=== PATIENT | male | born 1990 | race Caucasian/White ===

== ENCOUNTER 2024-05-18 10:36 | Outpatient (OUT) | payer OTHER, SELFPAY ==
--- NOTE | 2024-05-18 | XR_ITS ---
The [address] [address] Patient Name: JOSE LAWRENCE MRN: [id number] date: 1990 Sex: M Assigned Patient Location: Current Patient Location: Accession/Order Number: [id number] Exam Date: 05/18/2024 14:02 Report Date: 05/18/2024 14:05 At the request of: BECKA FOREMAN MD Procedure: XR knee LT 2V LEFT KNEE - 2 views COMPARISON: None currently available CLINICAL DATA: Left knee pain since injury skiing yesterday. AP and lateral views were obtained. There is a vertically oriented lateral tibial plateau fracture with intra-articular extension. There is no significant displacement or step-off at the articular margin. No other fractures or dislocation are noted. There is a large knee effusion. XR/XR knee LT 2V IMPRESSION: LATERAL TIBIAL PLATEAU FRACTURE. THERE ARE NO AVAILABLE COMPARISONS FOR CORRELATION. Impression dictated by: Ev Ann M.D.05/18/2024 2:05 PM Dictation Location: [place] [address] Electronically authenticated by: [id number] Y Date: 05/18/2024 14:05
== END 2024-05-18 10:37 | disposition home or self-care (01) ==
LOC: EC 10:43
PROVIDERS: Visit Provider Orthopaedic Surgery
DX: S82.122A Displaced fracture of lateral condyle of left tibia, initial encounter for closed fracture (principal)
CPT/HCPCS: 73560

== ENCOUNTER 2024-05-25 09:06 | Outpatient (OUT) | payer OTHER, SELFPAY ==
--- NOTE | 2024-05-25 | XR_ITS ---
The [place] [id number] Patient Name: JOSE LAWRENCE MRN: [id number] date: 1990 Sex: M Assigned Patient Location: Current Patient Location: Accession/Order Number: [id number] Exam Date: 05/25/2024 10:52 Report Date: 05/25/2024 10:53 At the request of: BECKA FOREMAN MD Procedure: XR knee LT 2V LEFT KNEE - 2 views CLINICAL HISTORY: Follow-up tibial plateau fracture COMPARISON: Left knee 05/18/2024 FINDINGS: Lateral tibial plateau fracture grossly unchanged in alignment and healing compared to the prior study. There is approximately 2 mm of depression of the fracture. Moderate joint effusion. XR/XR knee LT 2V IMPRESSION: NO SIGNIFICANT CHANGE IN FRACTURE FINDINGS. Impression dictated by: Evan Lopez Jr., D.O.05/25/2024 10:53 AM Dictation Location: [place] [address] Electronically authenticated by: [id number] Y Date: 05/25/2024 10:53
--- OUTSIDE RECORDS SUMMARY | 2024-05-25 09:22 | XMS_ITS | CCD ---
Author Organization [facility]iniSyco Care Team Providers Care Dewaterer Operator Name Role Phone Erika OLIVEIRA Attending Unavailable Erika OLIVEIRA Admitting Unavailable Janis Cruz MD Primary Care Provider KIM MENDOZA Attending Unavailable KIM MENDOZA Attending Unavailable Medications Current Medications Medication Drug Class(es) Dates Sig (Normalized) Sig (Original) 24 hr levETIRAcetam 1000 mg extended release oral tablet (3 sources) Start: 07-17-2023 take 2 tablets by mouth every twenty-four hours in the morning levETIRAcetam XR 1000 MG tablet sustained-release 24 hour Indications: Seizure (CMS/HCC) Take 2,000 mg by mouth in the morning and 2,000 mg before bedtime. 180 tablet 1 07/17/2023 Active Problems Problem Classification Problem Date Documented Date Episodic/Chronic Epilepsy; convulsions (6 sources) Generalized idiopathic epilepsy and epileptic syndromes, intractable, without status epilepticus; Translations: [Generalized nonconvulsive epilepsy, with intractable epilepsy] Onset: 07-15-2023 07-15-2023 Chronic Epilepsy; convulsions (5 sources) Seizure; Translations: [Unspecified convulsions] Onset: 07-15-2023 07-15-2023 Episodic Results Test Name Value Interpretation Reference Range Facil ity In office Testingon 09-06-19 23 In office Testing [id number]. [id number]# 1.00CD:127 Normal [facility] In office Testing [id number]. [id number]# 1.00CD:127 [facility] Progress Note-Nurseon 2022 Progress Note-Nurse [id number]. [id number]# 1.00CD:127 [facility] Consenton 01-11-2022 Consent [id number]. [id number]# 1.00CD:127 [facility] Registrationon 01-11-2022 Registration [id number]. [id number]# 1.00CD:127 [facility] Vital Signs Date Time Vital Sign Value Performing Clinician Zeina sebastian 02-26-2024 15:09-0500 Body height 185.4 cm Kim Faulknerr MACHINE DEICER ELEMENT WINDER Work Phone: [facility] 02-26-2024 15:09-0500 Body mass index (BMI) [Ratio] 26.91 kg/m2 Kim Elizaldemor MACHINE DEICER ELEMENT WINDER Work Phone: [facility] 02-26-2024 15:09-0500 Body weight 92.53 kg Kim Elizaldemor MACHINE DEICER ELEMENT WINDER Work Phone: [facility] 02-26-2024 15:09-0500 Diastolic blood pressure 81 mm[Hg] Kim Fidemor MACHINE DEICER ELEMENT WINDER Work Phone: [facility] 02-26-2024 15:09-0500 Heart rate 59 /min Kim Fidemor MACHINE DEICER ELEMENT WINDER Work Phone: [facility] 02-26-2024 15:09-0500 Systolic blood pressure 123 mm[Hg] Kim Fidemor MACHINE DEICER ELEMENT WINDER Work Phone: [facility] Healthcare Encounters Encounter Date Encounter Type Care Provider Facility Start: 02-26-2024 End: 02-26-2024 Office outpatient visit 15 minutes Kim Mendoza MACHINE DEICER ELEMENT WINDER Work Phone: [facility] [address] Comment on above: Seizure (CMS/HCC) (P rimary Dx) Start: 02-26-2024 End: 02-26-2024 ambulatory KIM MENDOZA Not Available Start: 02-26-2024 End: 02-26-2024 Bamboo flowsheet Kim Mendoza MACHINE DEICER ELEMENT WINDER [facility] Start: 02-26-2024 End: 02-26-2024 Bamboo flowsheet Kim Mendoza NP Work Phone: [facility] [place] [address] Start: 07-17-2023 End: 07-17-2023 ambulatory KIM MENDOZA Not Available Start: 01-11-2022 End: 01-12-2022 ambulatory Erika OLIVEIRA Facility:[facility] Plan of Treatment Date Care Activity Detail Author Start: 02-23-2025 End: 02-23-2025 Patient encounter procedure 02/23/2025 3:00 PM EST Office Visit [facility] [place] [address] [place] [address] Piper Martinez DO [address] [place] [address] [facility] Start: 02-26-2024 End: 02-26-2024 Patient encounter procedure 02/26/2024 3:00 PM EST Office Visit [facility] [place] [address] [place] [address] Kim Mendoza NP [address] [place] [place] [facility] Comment on above: Arrived Start: 11-10-2023 Influenza vaccination Influenz a Vaccine (#1) [facility] Immunizations Immunization Date Immunization Notes Care Provider Fa cili 02-11-2016 influenza virus vacc ine, unspecified formulation Kim Mendoza NP Work Phone: [facility] Payers Date Payer Category Payer Private Health Insurance [facility] [id number] 2023 Private Health Insurance [id number] 2021 Self-pay 1990 Unknown [id number] 1990 Unknown [id number] 1990 Unknown [id number] Social History Date Type Detail Facility [facility]: [facility] Start: 07-15-2023 Tobacco use and exposure Smokeless t obacco non-user [facility] Start: 07-17-2023 Alcoholic beverage intake Ex-drinker (finding) [facility] Start: 07-17-2023 End: 02-26-2024 History of Social function [facility] Start: 07-17-2023 End: 02-26-2024 Tobacco use panel [facility] Start: 1990 Sex assigned at Male [facility] Start: 02-24-2024 Gender identity Identifies as male gender (finding) [facility] Start: 02-24-2024 Sexual orientation Heterosexual (fin ding) [facility] Start: 02-26-2024 Alcoholic beverage intake Curr ent drinker of alcohol (finding) [facility] Evaluation note Note Date & Type Note Facility Evaluation note Diagnosis Seizure (CMS/HCC)- Primary Other convulsions documented in this encounter [facility] Summary Purpose Family History No Family History Records FoundNo Family History Records Found Advance Directives No Advanced Directives Records FoundNo Advanced Directives Records Found Additional Source Comments (unrecognized sect ion and content) No Status Records FoundNo Status Records Found INFORMATION SOURCE (unrecogn ized section and content) DATE CREATED AUTHOR 09/06/2022 Javi Turner [facility] DATE CREATED AUTHOR AUTHOR'S ORGANIZ ATION 03/01/2024 [facility] dical Specialists EPIC Care Teams (unrecognized sec tion and content) Dewaterer Operator Relationship Specialty Start Date End Date Janis Cruz MD [address] [facility] [address] PCP - General Family Medicine 07/17/23 Dewaterer Operator Relationship Specialty Start Date End Date Janis Cruz MD [address] [place] [address] PCP - General Family Medicine 07/17/23 FOR RECORDS PERTAINING TO PATIENTS WHO ARE OR HAVE BEEN ENROLLED IN A CHEMICAL DEPENDENCY/SUBSTANCEABUSE PROGRAM, SOME INFORMATION MAY BE OMITTED. This clinical summary was aggregated from multiple sources. Caution should be exercised in using it in the provision of clinical care. This summary normalizes information from multiple sources, and as a consequence, information in this document may materially change the coding, format and clinical context of patient data. In addition, data may be omitted in some cases. CLINICAL DECISIONS SHOULD BE BASED ON THE PRIMARY CLINICAL RECORDS. [employer] provides no warranty or guarantee of the accuracy or completeness of information in this document.
== END 2024-05-25 09:07 | disposition home or self-care (01) ==
LOC: EC 09:07
PROVIDERS: Visit Provider Orthopaedic Surgery
DX: S82.122D Displaced fracture of lateral condyle of left tibia, subsequent encounter for closed fracture with routine healing (principal)
CPT/HCPCS: 73560

== ENCOUNTER 2024-06-01 08:49 | Outpatient (OUT) | payer OTHER, SELFPAY ==
--- NOTE | 2024-06-01 08:50 | XR_ITS ---
The [place] [address] Patient Name: JOSE LAWRENCE MRN: [id number] date: 1990 Sex: M Assigned Patient Location: Current Patient Location: Accession/Order Number: [id number] Exam Date: 06/01/2024 14:00 Report Date: 06/01/2024 14:03 At the request of: BECKA FOREMAN MD Procedure: XR knee LT 2V LEFT KNEE - 2 views CLINICAL HISTORY: Closed fracture of lateral portion of left tibial plateau COMPARISON: Left knee 05/25/2024 FINDINGS: Small knee joint effusion. Lateral tibial plateau fracture grossly unchanged alignment with fracture line less conspicuous suggestive of healing response. XR/XR knee LT 2V IMPRESSION: HEALING LATERAL TIBIAL PLATEAU FRACTURE. Impression dictated by: Evan Lopez Jr., D.OCasey06/01/2024 2:03 PM Dictation Location: [place] [address] Electronically authenticated by: [id number] Y Date: 06/01/2024 14:03
--- OUTSIDE RECORDS SUMMARY | 2024-06-01 09:10 | XMS_ITS | CCD ---
Author Organization [facility] CliniSyal Care Team Providers Care Surface Water Manager Name Role Phone Erika OLIVEIRA Attending Unavailable rEika OLIVEIRA Admitting Unavailable Janis Cruz MD Primary Care Provider [phone] KIM MENDOZA Attending Unavailable KIM MENDOZA Attending [...] Testingon 09-06-19 23 In office Testing [id number]. [id number]# 1.00CD:[address] [facility] In office Testing [id number]. [id number]# 1.00CD:127 [facility] Progress Note-Nurseon 2022 Progress Note-Nurse [id number]. [id number]# 1.00CD:127 [facility] Consenton 01-11-2022 Consent [id number]. [id number]# 1.00CD:127 [facility] Registrationon 01-11-2022 Registration [id number]. [id number]# 1.00CD:127 [facility] Vital Signs Date Time Vital Sign Value Performing Clinician Zeina sebastian 02-26-2024 15:09-0500 Body height 185.4 cm Kim Faulknerr COMMUNITY REPRESENTATIVE Work Phone: [facility] 02-26-2024 15:09-0500 Body mass index (BMI) [Ratio] 26.91 kg/m2 Kim Elizaldemor COMMUNITY REPRESENTATIVE Work Phone: [facility] 02-26-2024 15:09-0500 Body weight 92.53 kg Kim Elizaldemor COMMUNITY REPRESENTATIVE Work Phone: [facility] 02-26-2024 15:09-0500 Diastolic blood pressure 81 mm[Hg] Kim Fidemor COMMUNITY REPRESENTATIVE Work Phone: [facility] 02-26-2024 15:09-0500 Heart rate 59 /min Kim Fidemor COMMUNITY REPRESENTATIVE Work Phone: [facility] 02-26-2024 15:09-0500 Systolic blood pressure 123 mm[Hg] Kim Fidemor COMMUNITY REPRESENTATIVE Work Phone: [facility] Healthcare Encounters Encounter Date Encounter Type Care Provider Facility Start: 02-26-2024 End: 02-26-2024 Office outpatient visit 15 minutes Kim Mendoza COMMUNITY REPRESENTATIVE Work Phone: [facility] [email or web address] [address] Comment on above: Seizure (CMS/HCC) (P rimary Dx) Start: 02-26-2024 End: 02-26-2024 ambulatory KIM MENDOZA Not Available Start: 02-26-2024 End: 02-26-2024 Bamboo flowsheet Kim Mendoza COMMUNITY REPRESENTATIVE [facility] Start: 02-26-2024 End: 02-26-2024 Bamboo flowsheet Kim Mendoza NP Work Phone: [facility] [place] [address] Start: 07-17-2023 End: 07-17-2023 ambulatory KIM MENDOZA Not Available Start: 01-11-2022 End: 01-12-2022 ambulatory Erika OLIVEIRA Facility:[facility] Plan of Treatment Date Care Activity Detail Author Start: 02-23-2025 End: 02-23-2025 Patient encounter procedure 02/23/2025 3:00 PM EST Office Visit [facility] [place] [address] [place] [address] Piper Martinez DO [address] [place] [address] [facility] Start: 02-26-2024 End: 02-26-2024 Patient encounter procedure 02/26/2024 3:00 PM EST Office Visit [facility] [place] [address] [place] [address] Kim Mendoza NP [address] [place] [place] [facility] Comment on above: Arrived Start: 11-10-2023 Influenza vaccination Influenz a Vaccine (#1) [facility] Immunizations Immunization Date Immunization Notes Care Provider Fa cili 02-11-2016 influenza virus vacc ine, unspecified formulation Kim Mendoza NP Work Phone: [facility] Payers Date Payer Category Payer Private Health Insurance [facility] [id number] 2023 Private Health Insurance [id number] 2021 Self-pay 1990 Unknown [id number] 1990 Unknown [id number] 1990 Unknown [id number] Social History Date Type Detail Facility Start: 07-15-2023 [facility] Start: 07-15-2023 [...] content) DATE CREATED AUTHOR 09/06/2022 Javi Turner [facility] DATE CREATED AUTHOR AUTHOR'S ORGANIZ ATION 03/01/2024 [facility] dical Specialists EPIC Care Teams (unrecognized sec tion and content) Surface Water Manager Relationship Specialty Start Date End Date Janis Cruz MD [address] [facility] [place] [address] PCP - General Family Medicine 07/17/23 Surface Water Manager Relationship Specialty Start Date End Date Janis Cruz MD [address] [place] [address] PCP - General Family Medicine 07/17/23 FOR [...] BE BASED ON THE PRIMARY CLINICAL RECORDS. [employer] provides no warranty or guarantee of the accuracy or completeness of information in this document.
== END 2024-06-01 08:50 | disposition home or self-care (01) ==
LOC: EC 08:50
PROVIDERS: Visit Provider Orthopaedic Surgery
DX: S82.122D Displaced fracture of lateral condyle of left tibia, subsequent encounter for closed fracture with routine healing (principal)
CPT/HCPCS: 73560

== ENCOUNTER 2024-06-08 09:00 | Outpatient (OUT) | payer OTHER, SELFPAY ==
--- NOTE | 2024-06-08 09:01 | XR_ITS ---
[place] [id number] Patient Name: JOSE LAWRENCE MRN: [id number] date: 1990 Sex: M Assigned Patient Location: Current Patient Location: Accession/Order Number: [id number] Exam Date: 06/08/2024 09:55 Report Date: 06/08/2024 09:56 At the request of: BECKA FOREMAN MD Procedure: XR knee LT 2V 2 views left knee plain film COMPARISON: 06/01/2024 HISTORY: Follow-up left tibial plateau fracture ACUTE FINDINGS: Stable alignment. DEGENERATIVE CHANGE: Unremarkable SOFT TISSUE FINDINGS: Unremarkable JOINT EFFUSION: Small joint effusion POSTOP CHANGES: None BONE MINERALIZATION: Adequate XR/XR knee LT 2V IMPRESSION: Stable lateral tibial plateau fracture. Impression dictated by: Robbie Oliver M.D.06/08/2024 9:56 AM Dictation Location: [place] [address] Electronically authenticated by: [id number] Y Date: 06/08/2024 09:56
--- OUTSIDE RECORDS SUMMARY | 2024-06-08 09:20 | XMS_ITS | CCD ---
Author Organization [facility] Care Team Providers Care General Assistant Name Role Phone Erika OLIVEIRA Attending Unavailable Erika OLIVEIRA Admitting Unavailable Janis Rhoades MD Primary Care Provider KIM MENDOZA Attending Unavailable KIM MENDOZA Attending Unavailable Janis Rhoades MD Primary Care Provider [phone] [employer]EM[employer] Referring Unavailable JANIS RHOADES Primary Care Unavailable JIMENEZ ACOSTA Attending Unavailable JANIS RHOADES Referring Unavailable JANIS RHOADES Primary Care Unavailable Medications Current Medications Medication Drug Class(es) Dates Sig (Normalized) Sig (Original) apixaban (2 sources) Factor Xa Inhibitor Start: 06-02-2024 End: 08-01-2024 take 1 tablet by mouth in the morning, then take 1 tablet by mouth at bedtime apixaban (ELIQUIS) 5 mg tablet Indications: Acute deep vein thrombosis (DVT) of calf muscle vein of left lower extremity (CMS-HCC) Take 1 tablet (5 mg total) by mouth in the morning and 1 tablet (5 mg total) before bedtime. Do all this for 60 days. 60 tablet 1 06/02/2024 08/01/2024 Active Start: 06-02-2024 take 2 tablets by mo [facility] twice daily, then take 1 tablet by mouth twice daily apixaban (ELIQUIS) 5 mg (74 tabs) tablets,dose pack tablet Indications: Acute deep vein thrombosis (DVT) of calf muscle vein of left lower extremity (CMS-HCC) Take 2 tablets by mouth twice daily for 7 days, then take 1 tablet twice daily 74 tablet 06/02/2024 Active 24 hr levETIRAcetam 1000 mg extended release oral tablet (4 sources) Start: 07-17-2023 take 2 tablets by mouth every twenty-four hours in the morning levETIRAcetam XR 1000 MG tablet sustained-release 24 hour Indications: Seizure (CMS/HCC) Take 2,000 mg by mouth in the morning and 2,000 mg before bedtime. 180 tablet 1 07/17/2023 Active take [address] [facility] every twenty-four hours at bedtime levETIRAcetam XR (KEPPRA XR) 500 mg 24 h r tablet Take 4 tablets (2,000 mg total) by mouth in the morning and at bedtime. Active Problems Active Problems Problem Classification Problem Date Documented Da te Episodic/Chronic Epilepsy; convulsions (7 sources) Generalized idiopathic epilepsy and epileptic syndromes, intractable, without status epilepticus; Translations: [Generalized nonconvulsive epilepsy, with intractable epilepsy] Onset: 12-19-2007 07-15-2023 Chronic Epilepsy; convulsions (5 sources) Seizure; Translations: [Unspecified convulsions] Onset: 07-15-2023 07-15-2023 Episodic Other connective tissue disease (1 source) Pain in left leg; Translations: [Pain in left leg] Onset: 06-02-2024 Episodic Other connective tissue disease (1 source) Other specified soft tissue disorders; Translations: [Other specified soft tissue disorders] Onset: 06-02-2024 Episodic Phlebitis; thrombophlebitis and thromboembolism (2 sources) Acute deep venous thrombosis of calf; Translations: [Acute embolism and thrombosis of left calf muscular vein] Onset: 06-02-2024 06-02-2024 Episodic Unclassified (1 source) Acute embolism and thrombosis of left calf muscular vein; Translations: [Acute embolism and thrombosis of left calf muscular vein] Onset: 06-02-2024 Past or Other Problems Problem Classification Problem Date Documented Da te Episodic/Chronic Mood disorders (1 source) Mood disorders Onset: 12-18-2022 12-18-2022 Results Test Name Value Interpretation Reference Range Facil ity In office Testingon 09-06-19 In office Testing [id number]# 1.00CD:127 Normal [facility] In office Testing [id number]# 1.00CD:127 Normal [facility] Progress Note-Nurseon 2022 Progress Note-Nurse [id number]# 1.00CD:127 [facility] Consenton 01-11-2022 Consent [id number]# 1.00CD:127 [facility] Registrationon 01-11-2022 Registration [id number]# 1.00CD:127 [facility] Vital Signs Date Time Vital Sign Value Performing Clinician Facility 06-02-2024 13:52-0400 Body mass index (BMI) [Ratio] 27.13 kg/m2 Jimenez Acosta DO Work Phone: [facility] [employer] [facility] 06-02-2024 13:52-0400 Body temperature 98.4 [degF] Jimenez Acosta DO Work Phone: [facility] 06-02-2024 13:52-0400 Body weight 93.26 kg Jimenez Acosta DO Work Phone: [facility] 06-02-2024 13:52-0400 Diastolic blood pressure 66 mm[Hg] Jimenez Acosta DO Work Phone: [facility] [employer] [facility] 06-02-2024 13:52-0400 Heart rate 63 /min Jimenez Acosta DO Work Phone: [facility] [employer] [facility] 06-02-2024 13:52-0400 SaO2% (BldA) [Mass fraction] 99 % Jimenez Acosta DO Work Phone: [facility] 06-02-2024 13:52-0400 Systolic blood pressure 110 mm[Hg] Jimenez Acosta DO Work Phone: [facility] [employer] [facility] 02-26-2024 15:09-0500 Body height 185.4 cm Kim Mendoza WOOL WASHER Work Phone: [facility] 02-26-2024 15:09-0500 Body mass index (BMI) [Ratio] 26.91 kg/m2 Kim Mendoza [employer] Work Phone: [facility] 02-26-2024 15:09-0500 Body weight 92.53 kg Kim Fidemor [employer] Work Phone: [facility] 02-26-2024 15:09-0500 Diastolic blood pressure 81 mm[Hg] Kim Fidemor WOOL W[employer]ER Work Phone: [facility] 02-26-2024 15:09-0500 Heart rate 59 /min Kim Fidemor [employer]OL W[employer]ER Work Phone: [facility] 02-26-2024 15:09-0500 Systolic blood pressure 123 mm[Hg] Kim Gillmor WOOL W[employer]ER Work Phone: [facility] Healthcare Encounters Encounter Date Encounter Type Care Provider Facility Start: 06-02-2024 End: 06-02-2024 Office outpatient visit 15 minutes Jimenez Acosta DO Work Phone: [facility] Comment on above: Acute deep vein thro mbosis (DVT) of calf muscle vein of left lower extremity (CMS-HCC) (Primary Dx) Start: 06-02-2024 End: 06-02-2024 ambulatory JIMENEZ Chelo [facility] Start: 06-02-2024 End: 06-02-2024 ambulatory [facility] Start: 02-26-2024 End: 02-26-2024 Office outpatient visit 15 minutes Kim Faulknerr [employer] [facility] Comment on above: Seizure (CMS/HCC) (P rimary Dx) Start: 02-26-2024 End: 02-26-2024 ambulatory KIM GILLMOR Not Available Start: 02-26-2024 End: 02-26-2024 Bamboo flowsheet Kim Gillmor WOOL WASHER [facility] Start: 02-26-2024 End: 02-26-2024 Bamboo flowsheet Kim Gillmor WOOL WASHER Work Phone: [facility] Start: 07-17-2023 End: 07-17-2023 ambulatory KIM GILLMOR Not Available Start: 01-11-2022 End: 01-12-2022 ambulatory [facility] Facility:[facility] Procedures Date Procedure Procedure Detail Performing Clinician Start: 06-02-2024 Follow-up visit Follow-up JIMENEZ ACOSTA Start: 12-18-2022 Adult depression screening assessment Jimenez Acosta DO Work Phone: Plan of Treatment Date Care Activity Detail Author Start: 06-02-2025 Adult BMI Screening Adult BMI Screen ing [facility] Start: 06-02-2025 Tobacco Screening Tobacco Screening [facility] Start: 02-23-2025 End: 02-23-2025 Patient encounter procedure 02/23/2025 3:00 PM EST Office Visit [facility] [address] [place] [address] Piper Martinez DO [address] [place] [address] [facility] Start: 07-30-2024 DTaP,Tdap and Td Vaccines (2 - Td or Tdap) DTaP,Tdap and Td Vaccines (2 - Td or Tdap) [facility] Start: 07-21-2024 End: 07-21-2024 Patient encounter procedure 07/21/2024 3:00 PM EDT Office Visit [facility] [address] [place] [id number] Janis Rhoades MD [address] [place] [address] [facility] Start: 02-26-2024 End: 02-26-2024 Patient encounter procedure 02/26/2024 3:00 PM EST Office Visit [facility] [address] [place] [address] Kim Mendoza NP [address] [place], [place] [facility] Comment on above: Arrived Start: 12-19-2023 [facility] Start: 11-10-2023 COVID-19 Vaccine ( season) COVID-19 Vaccine ( season) [facility] Start: 11-10-2023 Influenza vaccination [facility] Immunizations Immunization Date Immunization Notes Care Provider Josseline callejas 02-11-2016 influenza, seasonal, injectable, preservative free Jimenez Acosta DO Work Phone: [facility] 02-11-2016 influenza virus vaccine, unspecified formulation Kim Mendoza WOOL WASHER Work Phone: [facility] 07-30-2014 tetanus toxoid, redu mariely diphtheria toxoid, and acellular pertussis vaccine, adsorbed Jimenez Acosta DO Work Phone: [facility] Payers Date Payer Category Payer Managed Care Other (unspecified) [facility] [id number] 2023 Private Health Insurance [facility] [id number] 2023 Private Health Insurance [id number] 2021 Self-pay 1990 Unknown [id number] 1990 Unknown [id number] 1988 Unknown [id number] 1990 Unknown [id number] 1990 Unknown [id number] Social History Date Type Detail Facility Start: 12-18-2022 End: 07-15-2023 Tobacco smoking status NHIS Never smoked tobacco [facility] Start: 12-18-2022 End: 07-15-2023 Tobacco use and exposure Smokeless tobacco non-user [facility] Start: 07-17-2023 Alcoholic beverage intake Ex-drinker (finding) [facility] Start: 12-18-2022 End: 07-17-2023 History of Social function [facility] Start: 12-18-2022 End: 07-17-[address] [facility] Start: 1990 Sex assigned at Male [facility] Start: 02-24-2024 Gender identity Identifies as male gender (finding) [facility] Start: 02-24-2024 Sexual orientation Heterosexual (finding) [facility] Start: 02-26-2024 End: 06-02-2024 Alcoholic beverage intake Current drinker of alcohol (finding) [facility] How hard is it for y ou to pay for the very basics like food, housing, medical care, and heating Not hard at all [facility] Start: 12-18-2022 Alcohol Comment 2 times a week [facility] Start: 1990 Sex assigned at Not on file [facility] Start: 08-22-2020 Sex Male (finding) [facility] Evaluation + Plan note 06-02-2024 Assessment & Plan Note - Jimenez Acosta DO - 06/02/2024 5:14 PM EDT Note Date & Type Note Facility 06-02-2024 Evaluation + Plan note Associated Problem(s): Acute deep vein thrombosis (DVT) of calf muscle vein of left lower extremity ([facility]) Discussed with patient that this is a provoked DVT due to immobilization. We will start Eliquis 5 mg with a starter pack to take as directed and then begin Eliquis 5 mg twice daily for an additional 60 days for a total treatment of 3 months. Discussed with patient that once he completed the 90 days of anticoagulation that medication can be discontinued and no further treatment or evaluation will be necessary unless he continues to have symptoms. Reviewed risk of bleeding with starting anticoagulation and how to manage bleeding and when to seek medical help. Discussed with patient that he does not need to follow any dietary changes or activity changes with being on the blood thinner. [facility] Note 06-02-2024 Assessment & Plan Note - Jimenez Acosta DO - 06/02/2024 5:14 PM EDT Note Date & Type Note Facility 06-02-2024 Miscellaneous Notes Associate d Problem(s): Acute deep vein thrombosis (DVT) of calf muscle vein of left lower extremity ([facility]) Discussed with patient that this is a provoked DVT due to immobilization. We will start Eliquis 5 mg with a starter pack to take as directed and then begin Eliquis 5 mg twice daily for an additional 60 days for a total treatment of 3 months. Discussed with patient that once he completed the 90 days of anticoagulation that medication can be discontinued and no further treatment or evaluation will be necessary unless he continues to have symptoms. Reviewed risk of bleeding with starting anticoagulation and how to manage bleeding and when to seek medical help. Discussed with patient that he does not need to follow any dietary changes or activity changes with being on the blood thinner. documented in this encounter [facility] History of Present illness Narrative 06-02-2024 Jimenez Acosta DO - 06/02/2024 2:00 PM EDT Note Date & Type Note Facility 06-02-2024 History of Present illness Narrative Images from the original note were not included. [facility] [address] [place] [address] [place] [address] Patient: Jose Lawrence Date of : 1990 Encounter Date: 06/02/2024 Subjective: Chief Complaint Chief Complaint Patient presents with Follow-up History of Present Illness Jose Lawrence is a 34 y.o. male,established patient, that presents to the office for DVT. 34-year-old male and a left knee immobilizer secondary to left tibial plateau fracture suffered while skiing approximately 2 weeks ago. Patient states that about 3 to 5 days ago he began noticing swelling and discomfort in his left calf. Patient [facility] that he has been following with and a venous Doppler was performed today which showed ACUTE deep peroneal vein thrombosis. Patient does not have a history of prior DVT. Currently he denies having any shortness of breath, chest pain/chest tightness. He does have some swelling in the left lower extremity and he had noticed some discoloration in the top of his left foot. Review of Systems Review of Systems Respiratory: Negative for chest tightness and shortness of breath. Cardiovascular: Positive for leg swelling (Left lower extremity). Negative for chest pain and palpitations. Vital Signs BP 110/66 (BP Site: Right Arm, BP Postition: Sitting) Pulse 63 Temp 36.9 C (98.4 F) Wt 93.3 kg (205 lb 9.6 oz) SpO2 99% BMI 27.13 kg/m Physical Exam Physical Exam Vitals reviewed. Constitutional: General: He is not in acute distress. Appearance: He is not ill-appearing or toxic-appearing. Comments: Ambulating with the aid of crutches. Cardiovascular: Rate and Rhythm: Normal rate and regular rhythm. Pulses: Posterior tibial pulses are 2+ on the left side. Heart sounds: No murmur heard. Pulmonary: Effort: Pulmonary effort is normal. No accessory muscle usage or respiratory distress. Breath sounds: No decreased breath sounds, wheezing, rhonchi or rales. Musculoskeletal: Left knee: Deformity (left knee in 180 degree knee immobilizer) present. No swelling or effusion. Right lower leg: No edema. Left lower leg: No tenderness (unable to elicit calf tenderness with deep palpation). 1+ Edema (located over mid villalta) present. Neurological: Mental Status: He is alert. Past Medical, Family, Surgery and Social History Past Medical History: Diagnosis Date Chronic headache Seizures (CMS-HCC) History reviewed. No pertinent surgical history. History reviewed. No pertinent family history. Social History Socioeconomic History Marital status: Single Spouse name: Not on file Number of children: Not on file Years of education: Not on file Highest education level: Not on file Occupational History Not on file Tobacco Use Smoking status: Never Smokeless tobacco: Never Vaping Use Vaping status: Never Used Substance and Sexual Activity Alcohol use: Yes Comment: 2 times a week Drug use: Never Sexual activity: Yes Partners: Female control/protection: Condom Other Topics Concern Not on file Social History Narrative Not on file Social Drivers of Health Financial Resource Strain: Low Risk (12/18/2022) Overall Financial Resource Strain (CARDIA) Difficulty of Paying Living Expenses: Not hard at all Food Insecurity: No Food Insecurity (12/18/2022) Hunger Screening Food Insecurity - Worry: Never True Food Insecurity - Inability: Never True Transportation Needs: No Transportation Needs (12/18/2022) PRAPARE - Transportation Lack of Transportation (Medical): No Lack of Transportation (Non-Medical): No Physical Activity: Not on file Stress: Not on file Social Connections: Not on file Interpersonal Safety: Not on file Housing Instability: Low Risk (12/18/2022) Housing Instability Housing Instability: No Allergies and Current Medications No Known Allergies Current Outpatient Medications on File Prior to Visit Medication Sig levETIRAcetam XR (KEPPRA XR) 500 mg 24 hr tablet Take 4 tablets (2,000 mg total) by mouth in the morning and at bedtime. No current facility-administered medications on file prior to visit. Labs and Imaging Lab Results Component Value Date WBC 3.4 (L) 12/21/2022 HGB 13.0 12/21/2022 HCT 39.2 12/21/2022 PLT 183 12/21/2022 CHOL 161 12/21/2022 TRIG 77 12/21/2022 HDL 46 12/21/2022 ALT 12 12/21/2022 AST 18 12/21/2022 K 3.8 12/21/2022 CL 102 12/21/2022 CREATININE 1.05 12/21/2022 BUN 11 12/21/2022 CO2 27 12/21/2022 TSH 1.34 12/21/2022 Vas venous duplex lwr single left Right: Common femoral vein is compressible with spontaneous phasic spectral Doppler waveforms. Left: Dilated noncompressible proximal to mid peroneal vein with hypoechoic intraluminal content and absent spectral Doppler signals. Remaining visualized deep venous segments are compressible with spontaneous phasic spectral Doppler waveforms. Superficial veins are compressible. Conclusions: LEFT:ACUTE deep peroneal vein thrombosis (DVT).NO EVIDENCE of deep vein thrombosis (DVT) of the right common femoral vein. Assessment/Plan: 1. Acute deep vein thrombosis (DVT) of calf muscle vein of left lower extremity (CMS-HCC) - apixaban (ELIQUIS) 5 mg (74 tabs) tablets,dose pack tablet; Take 2 tablets by mouth twice daily for 7 days, then take 1 tablet twice daily Dispense: 74 tablet; Refill: 0 - apixaban (ELIQUIS) 5 mg tablet; Take 1 tablet (5 mg total) by mouth in the morning and 1 tablet (5 mg total) before bedtime. Do all this for 60 days. Dispense: 60 tablet; Refill: 1 Acute deep vein thrombosis (DVT) of calf muscle vein of left lower extremity (CMS-HCC) Discussed with patient that this is a provoked DVT due to immobilization. We will start Eliquis 5 mg with a starter pack to take as directed and then begin Eliquis 5 mg twice daily for an additional 60 days for a total treatment of 3 months. Discussed with patient that once he completed the 90 days of anticoagulation that medication can be discontinued and no further treatment or evaluation will be necessary unless he continues to have symptoms. Reviewed risk of bleeding with starting anticoagulation and how to manage bleeding and when to seek medical help. Discussed with patient that he does not need to follow any dietary changes or activity changes with being on the blood thinner. There are no Patient Instructions on file for this visit. Follow-up: 2 to 3 months DVT follow-up - Jimenez Acosta DO 06/02/24 5:14 PM documented in this encounter [facility] Evaluation note Note Date & Type Note Facility Evaluation note Diagnosis Seizure (CMS/HCC)- Primary Other convulsions documented in this encounter [facility] Evaluation note Note Date & Type Note Facility Evaluation note Diagnosis Acute deep vein thrombosis (DVT) of calf muscle vein of left lower extremity (CMS-HCC)- Primary documented in this encounter [facility] Instructions Attachments Note Date & Type Note Facility Instructions The following attachments cannot be sent through Care Everywhere.Deep vein thrombosis (blood clot in the leg) (Czech)documented in this encounter [facility] Summary Purpose Family History No Family History Records FoundNo Family History Records FoundNo Family History Records FoundNo Family History Records Found Advance Directives No Advanced Directives Records FoundNo Advanced Directives Records FoundNo Advanced Directives Records FoundNo Advanced Directives Records Found Additional Source Comments (unrecognized sect ion and content) No Status Records FoundNo Status Records FoundNo Status Records FoundNo Status Records Found INFORMATION SOURCE (unrecogn ized section and content) DATE CREATED AUTHOR 09/06/2022 [facility] [employer] [facility] DATE CREATED AUTHOR AUTHOR'S ORGANIZ ATION 03/01/2024 [facility] DATE CREATED AUTHOR AUTHOR'S ORGANIZ ATION 06/03/2024 [facility] DATE CREATED AUTHOR AUTHOR'S ORGANIZ ATION 06/03/2024 [facility] Care Teams (unrecognized sec tion and content) General Assistant Relationship Specialty Start Date End Date Janis Rhoades MD [address] [place] [address] PCP - General Family Medicine 07/17/23 General Assistant Relationship Specialty Start Date End Date Janis Rhoades MD [address] [facility] [address] [facility] [address] PCP - General Family Medicine 07/17/23 General Assistant Relationship Specialty Start Date End Date Janis Rhoades MD [address] [place], [place] [id number] PCP - General 12/18/22 Reason for Visit (unrecogniz ed section and content) Reason Comments Follow-up FOR RECORDS PERTAINING TO PATIENTS WHO ARE [...] BE BASED ON THE PRIMARY CLINICAL RECORDS. [facility] [employer] [facility]. provides no warranty or guarantee of the accuracy or completeness of information in this document.
== END 2024-06-08 09:01 | disposition home or self-care (01) ==
LOC: EC 09:00
PROVIDERS: Visit Provider Orthopaedic Surgery
DX: S82.122D Displaced fracture of lateral condyle of left tibia, subsequent encounter for closed fracture with routine healing (principal)
CPT/HCPCS: 73560

== ENCOUNTER 2024-07-06 08:49 | Outpatient (OUT) | payer OTHER, SELFPAY ==
--- NOTE | 2024-07-06 | XR_ITS ---
[place] [address] Patient Name: JOSE LAWRENCE MRN: [id number] date: 1990 Sex: M Assigned Patient Location: Current Patient Location: Accession/Order Number: [id number] Exam Date: 07/06/2024 13:58 Report Date: 07/06/2024 13:59 At the request of: BECKA FOREMAN MD Procedure: XR knee LT 2V LEFT KNEE - 2 views CLINICAL HISTORY: S82.122D Displaced fracture of lateral condyle of left tibia COMPARISON: Knee 06/08/2024 FINDINGS: Lateral tibial plateau fracture is less conspicuous suggestive of healing response. Minimal depression of the fracture. XR/XR knee LT 2V IMPRESSION: HEALING LATERAL TIBIAL PLATEAU FRACTURE. Impression dictated by: Evan Lopez Jr., DCaseyOCasey 07/06/2024 1:59 PM Dictation Location: [place] [address] Electronically authenticated by: [id number] Date: 07/06/2024 13:59
== END 2024-07-06 08:50 | disposition home or self-care (01) ==
LOC: EC 08:49
PROVIDERS: Visit Provider Orthopaedic Surgery
DX: S82.122D Displaced fracture of lateral condyle of left tibia, subsequent encounter for closed fracture with routine healing (principal)
CPT/HCPCS: 73560